=== PATIENT | male | born 1935 | race Caucasian/White ===

== ENCOUNTER 2017-02-21 04:16 | Inpatient (IN) | payer OTHER ==
[~2017-02-21] VITALS: Ht 172.7 cm; Wt 70.2 kg
[~2017-02-21 04:16] MED LIST: ASPIR 8181 M1 PO; Combivent IH; DELTASONE20 MG PO; LIPITOR40 MG PO
[2017-02-21 05:01] LABS: EOSINOPHIL (%) 1.4 % (0-5); EOSINOPHIL COUNT 0.1 K/uL (0-0.3); HEMATOCRIT 38.8 % (38.0-50.0); IMMATURE GRANULOCYTE (%) 0.2 % (0.0-0.7); LYMPHOCYTE COUNT 1.9 K/uL (1.0-2.8); MCH 31.4 PG (29.0-34.0); MCHC 33.5 G/DL (30.0-36.0); MCV 93.7 FL (86-99); MEAN PLAT.VOLUME 10.2 uM^3 (9.0-12.4); MONOCYTE (%) 8.3 % (3-12); MONOCYTE COUNT 0.8 K/uL (0-0.8); NEUTROPHIL (%) 70.3 % (45-76); PLATELET COUNT 272 K/uL (156-360); RBC DIS.WIDTH-CV 13.8 % (11.8-14.6); RBC DIS.WIDTH-SD 47.5 % (39-53); RED BLOOD COUNT 4.14 M/uL (4.00-5.50)
[2017-02-21 05:08] LABS: PTT 38.2 SEC (25-37)
[2017-02-21 05:14] LABS: CHLORIDE 111 mEq/L (99-109); POTASSIUM 4.3 mEq/L (3.7-5.4); SODIUM 141 mEq/L (136-147)
[2017-02-21 05:16] LABS: GLUCOSE 121 mg/dL (70-99)
[2017-02-21 05:17] LABS: ANION GAP 11 MEQ/L (2-14)
[2017-02-21 05:20] LABS: GFR ESTIMATE (CALCULATED) > 59 mL/min/
[2017-02-21 05:21] LABS: UREA NITROGEN (BUN) 24 mg/dL (9-23)
[2017-02-21 05:22] LABS: TROP-I INTERPRETATION POSITIVE
[2017-02-21 05:31] LABS: TROPONIN-I 1.34 ng/mL (0.0-0.30)
[2017-02-21] MEDS ORDERED: XARELTO20 MG PO (07:06)
[2017-02-21] MEDS ORDERED: ROSUVASTATIN CA20 MG PO (07:07)
[2017-02-21 07:56] VITALS: BP 120/70
[2017-02-21 08:13] LABS: HDL CHOLESTEROL 36 MG/DL (Desirable>=40); LDL CHOLESTEROL 48 mg/dL (Desirable<100); NON-HDL CHOLESTEROL 66 mg/dL (Desirable<160); TOTAL CHOLESTEROL 102 mg/dL (Desirable<200); TRIGLYCERIDES 88 MG/DL (Normal: <150)
[2017-02-21 12:36] VITALS: BP 118/62
[2017-02-21 13:00] LABS: TROP-I INTERPRETATION POSITIVE; TROPONIN-I 1.14 ng/mL (0.0-0.30)
[2017-02-21] MEDS ORDERED: UNISOM SLEEP AI25 MG PO (16:00)
[2017-02-21] MEDS ORDERED: CICLOPIROX30 GM TP (16:00)
[2017-02-21] MEDS ORDERED: ONE DAILY MULT1 EACH PO (16:01)
[2017-02-21 16:45] VITALS: BP 127/77
[2017-02-21 18:42] LABS: TROP-I INTERPRETATION POSITIVE; TROPONIN-I 0.94 ng/mL (0.0-0.30)
[2017-02-21 20:00] VITALS: BP 114/62
[2017-02-21 23:40] VITALS: BP 128/60
[2017-02-22 04:32] VITALS: BP 121/58
[2017-02-22 05:26] LABS: HEMATOCRIT 42.8 % (38.0-50.0); MCH 31.7 PG (29.0-34.0); MCHC 33.9 G/DL (30.0-36.0); MCV 93.4 FL (86-99); MEAN PLAT.VOLUME 11.6 uM^3 (9.0-12.4); PLATELET COUNT 269 K/uL (156-360); RBC DIS.WIDTH-CV 14.2 % (11.8-14.6); RBC DIS.WIDTH-SD 47.9 % (39-53); RED BLOOD COUNT 4.58 M/uL (4.00-5.50); WHITE BLOOD COUNT 12.1 K/uL (4.1-10.2)
[2017-02-22 05:59] LABS: ANION GAP 13 MEQ/L (2-14); CHLORIDE 107 MEQ/L (99-109); GFR ESTIMATE (CALCULATED) 48 mL/min/; GLUCOSE 125 mg/dL (70-99); POTASSIUM 4.6 MEQ/L (3.7-5.4); SAMPLE HEMOLYSIS CHECK 1; SAMPLE ICTERIC CHECK 0; SAMPLE LIPEMIA CHECK 0; SODIUM 141 MEQ/L (136-147); UREA NITROGEN (BUN) 26 mg/dL (9-23)
[2017-02-22 06:34] LABS: INTER. NORMALIZED RATIO 1.4; PROTHROMBIN TIME 16.3 SEC (10.2-12.9)
[2017-02-22 08:13] VITALS: BP 138/63
[2017-02-22 12:33] VITALS: BP 119/58
[2017-02-22 16:27] VITALS: BP 114/69
[2017-02-22 19:45] VITALS: BP 121/58
[2017-02-22 22:45] VITALS: BP 116/76
[2017-02-23 04:00] VITALS: BP 114/57
[2017-02-23 06:04] LABS: HEMATOCRIT 42.3 % (38.0-50.0); MCHC 32.9 G/DL (30.0-36.0); MCV 94.2 FL (86-99); MEAN PLAT.VOLUME 10.2 uM^3 (9.0-12.4); PLATELET COUNT 314 K/uL (156-360); RBC DIS.WIDTH-CV 13.8 % (11.8-14.6); RBC DIS.WIDTH-SD 47.8 % (39-53); RED BLOOD COUNT 4.49 M/uL (4.00-5.50); WHITE BLOOD COUNT 9.1 K/uL (4.1-10.2)
[2017-02-23 06:25] LABS: ANION GAP 8 MEQ/L (2-14); CHLORIDE 107 MEQ/L (99-109); POTASSIUM 4.5 MEQ/L (3.7-5.4); SAMPLE HEMOLYSIS CHECK 0; SAMPLE ICTERIC CHECK 0; SAMPLE LIPEMIA CHECK 0; SODIUM 140 MEQ/L (136-147)
[2017-02-23 06:31] LABS: GFR ESTIMATE (CALCULATED) 48 mL/min/; GLUCOSE 113 mg/dL (70-99); UREA NITROGEN (BUN) 31 mg/dL (9-23)
[2017-02-23 06:52] LABS: INTER. NORMALIZED RATIO 1.3; PROTHROMBIN TIME 15.2 SEC (10.2-12.9)
[2017-02-23 06:55] LABS: PTT 29.4 SEC (25-37)
[2017-02-23 07:30] VITALS: BP 107/59
[2017-02-23 08:33] VITALS: BP 128/60
[2017-02-23] MEDS ORDERED: LASIX40 MG PO (10:51)
[2017-02-23] MEDS ORDERED: COREG3.125 M1 PO (10:51)
[2017-02-23] MEDS ORDERED: XARELTO20 MG PO (10:51)
[2017-02-23 11:30] VITALS: BP 131/74
== END 2017-02-23 13:21 | disposition home or self-care (01) | DRG 281 ==
LOC: EME 04:16 → EDOF 05:42 → 4EAST 05:42 → ENRESERV 05:43 → 4EAST 07:19
PROVIDERS: Emergency Medicine; Hospitalist; Internal Medicine Cardiovascular Disease
DX: I21.4 Non-ST elevation (NSTEMI) myocardial infarction (principal); I48.92 Unspecified atrial flutter; I25.10 Atherosclerotic heart disease of native coronary artery without angina pectoris; Z95.1 Presence of aortocoronary bypass graft; Z95.5 Presence of coronary angioplasty implant and graft; J44.9 Chronic obstructive pulmonary disease, unspecified; E78.00 Pure hypercholesterolemia, unspecified; E78.5 Hyperlipidemia, unspecified; I48.91 Unspecified atrial fibrillation; I50.9 Heart failure, unspecified; J98.11 Atelectasis
CPT/HCPCS: 71010; 71250; 80048; 80061; 83735; 84484; 85025; 85027; 85379; 85610; 85730; 93005; 94799; 99281; 99285; J1940; J7030

== ENCOUNTER 2017-03-02 04:19 | Inpatient (IN) | payer OTHER ==
[~2017-03-02] VITALS: Ht 172.7 cm; Wt 69.5 kg
[~2017-03-02 04:19] MED LIST changes: +CICLOPIROX30 GM TP; +COREG3.125 M1 PO; +LASIX40 MG PO; +ONE DAILY MULT1 EACH PO; +ROSUVASTATIN CA20 MG PO; +UNISOM SLEEP AI25 MG PO; +XARELTO20 MG PO
[2017-03-02 05:30] LABS: INTER. NORMALIZED RATIO 2.5
[2017-03-02 05:32] LABS: PTT 39.9 SEC (25-37)
[2017-03-02 05:34] LABS: PROTHROMBIN TIME 28.7 SEC (10.2-12.9)
[2017-03-02 05:36] LABS: CHLORIDE 108 mEq/L (99-109); SODIUM 141 mEq/L (136-147)
[2017-03-02 05:37] LABS: HEMATOCRIT 42.7 % (38.0-50.0); MCH 31.6 PG (29.0-34.0); MCHC 33.3 G/DL (30.0-36.0); MCV 94.9 FL (86-99); MEAN PLAT.VOLUME 10.2 uM^3 (9.0-12.4); PLATELET COUNT 312 K/uL (156-360); RBC DIS.WIDTH-CV 14.1 % (11.8-14.6); RBC DIS.WIDTH-SD 49.1 % (39-53); WHITE BLOOD COUNT 9.8 K/uL (4.1-10.2)
[2017-03-02 05:38] LABS: GLUCOSE 110 mg/dL (70-99)
[2017-03-02 05:39] LABS: ANION GAP 11 MEQ/L (2-14)
[2017-03-02 05:42] LABS: GFR ESTIMATE (CALCULATED) 45 mL/min/
[2017-03-02 05:43] LABS: UREA NITROGEN (BUN) 25 mg/dL (9-23)
[2017-03-02 05:49] LABS: TROP-I INTERPRETATION NEGATIVE; TROPONIN-I 0.03 ng/mL (0.0-0.30)
[2017-03-02] MEDS ORDERED: XARELTO15 MG PO (09:05)
[2017-03-02] MEDS ORDERED: BENADRYL25 MG PO (09:08)
[2017-03-02 10:04] VITALS: BP 126/75
[2017-03-02 11:51] VITALS: BP 139/67
[2017-03-02 12:51] LABS: TROP-I INTERPRETATION NEGATIVE; TROPONIN-I 0.04 ng/mL (0.0-0.30)
[2017-03-02 15:32] VITALS: BP 110/57
[2017-03-02 17:10] LABS: ADD MIUA? NO; BILIRUBIN NEGATIVE; BLOOD NEGATIVE; COLOR YELLOW ((YELLOW)); GLUCOSE (STRIP) NEGATIVE; KETONES NEGATIVE; LEUKOCYTES NEGATIVE; NITRITE NEGATIVE; PROTEIN (STRIP) NEGATIVE; SPECIFIC GRAVITY 1.008 (1.000-1.030); UROBILINOGEN 0.2 MG/DL (0.2-1.0)
[2017-03-02 17:49] LABS: TROP-I INTERPRETATION NEGATIVE; TROPONIN-I 0.03 ng/mL (0.0-0.30)
[2017-03-02 20:25] VITALS: BP 112/60
[2017-03-03] VITALS (7 sets, daily range): BP systolic 104–127; BP diastolic 53–68
[2017-03-03 06:03] LABS: ANION GAP 11 MEQ/L (2-14); CHLORIDE 110 MEQ/L (99-109); GFR ESTIMATE (CALCULATED) 52 mL/min/; GLUCOSE 87 mg/dL (70-99); POTASSIUM 4.5 MEQ/L (3.7-5.4); SAMPLE HEMOLYSIS CHECK 0; SAMPLE ICTERIC CHECK 0; SAMPLE LIPEMIA CHECK 0; SODIUM 143 MEQ/L (136-147); UREA NITROGEN (BUN) 31 mg/dL (9-23)
[2017-03-04 03:30] VITALS: BP 106/55
[2017-03-04 07:16] VITALS: BP 101/65; BP 121/57
[2017-03-04 10:14] LABS: ANION GAP 9 MEQ/L (2-14); CHLORIDE 107 MEQ/L (99-109); GFR ESTIMATE (CALCULATED) 45 mL/min/; GLUCOSE 93 mg/dL (70-99); POTASSIUM 4.4 MEQ/L (3.7-5.4); SAMPLE HEMOLYSIS CHECK 0; SAMPLE ICTERIC CHECK 0; SAMPLE LIPEMIA CHECK 0; SODIUM 141 MEQ/L (136-147); UREA NITROGEN (BUN) 30 mg/dL (9-23)
[2017-03-04 11:38] VITALS: BP 115/59
[2017-03-04] MEDS ORDERED: METOPROLOL SUCC25 MG PO (15:08)
[2017-03-04] MEDS ORDERED: DIGOXIN125 MCG PO (15:08)
[2017-03-04] MEDS ORDERED: CORDARONE200 MG PO (15:09)
[2017-03-04] MEDS ORDERED: ZOLPIDEM TARTRAT5 MG PO (15:13)
== END 2017-03-04 16:24 | disposition home health service (06) | DRG 280 ==
LOC: EME 04:19 → EDOF 07:44 → 4EAST 07:44 → CANRESERV 07:50 → ENRESERV 07:50 → 4EAST 09:23
PROVIDERS: Emergency Medicine; Internal Medicine; Internal Medicine Cardiovascular Disease; Internal Medicine Nephrology
DX: I13.0 Hypertensive heart and chronic kidney disease with heart failure and stage 1 through stage 4 chronic kidney disease, or unspecified chronic kidney disease (principal); I50.43 Acute on chronic combined systolic (congestive) and diastolic (congestive) heart failure; N18.3 Chronic kidney disease, stage 3 (moderate); N17.9 Acute kidney failure, unspecified; I21.9 Acute myocardial infarction, unspecified; E78.00 Pure hypercholesterolemia, unspecified; I48.91 Unspecified atrial fibrillation; E78.5 Hyperlipidemia, unspecified; I48.92 Unspecified atrial flutter; I25.10 Atherosclerotic heart disease of native coronary artery without angina pectoris; I08.0 Rheumatic disorders of both mitral and aortic valves; I25.2 Old myocardial infarction; Z95.1 Presence of aortocoronary bypass graft; Z95.5 Presence of coronary angioplasty implant and graft; Z79.01 Long term (current) use of anticoagulants; Z79.82 Long term (current) use of aspirin
CPT/HCPCS: 71020; 76770; 80048; 80162; 81003; 83880; 84443; 84484; 85027; 85610; 85730; 93005; 99281; 99285; J1160; J1940

== ENCOUNTER 2017-03-25 12:24 | Day surgery (SDC) | payer OTHER ==
[~2017-03-25] VITALS: Ht 172.7 cm; Wt 69.0 kg
[~2017-03-25 12:24] MED LIST changes: +AMIODARONE HCL200 MG PO; +BENADRYL25 MG PO; +CORDARONE200 MG PO; +DIGOXIN125 MCG PO; +FUROSEMIDE40 MG PO; +METOPROLOL SUCC25 MG PO; +OMEPRAZOLE20 M2 PO; +UNISOM50 MG PO; +XARELTO15 MG PO; +ZOLPIDEM TARTRAT5 MG PO
== END 2017-03-25 15:03 | disposition home or self-care (01) ==
LOC: CATH 12:24
PROC: 5A2204Z Restoration of Cardiac Rhythm, Single (ICD-10-PCS; principal; 2017-03-25)
DX: I48.1 Persistent atrial fibrillation (principal); I25.10 Atherosclerotic heart disease of native coronary artery without angina pectoris; I10 Essential (primary) hypertension; E78.2 Mixed hyperlipidemia; I35.0 Nonrheumatic aortic (valve) stenosis
CPT/HCPCS: 93005; J0330

== ENCOUNTER 2017-04-08 18:00 | Emergency (ER) | payer OTHER ==
[~2017-04-08] VITALS: Ht 172.7 cm; Wt 71.9 kg
[2017-04-08 18:38] LABS: HEMATOCRIT 42.5 % (38.0-50.0); MCH 31.4 PG (29.0-34.0); MCHC 33.2 G/DL (30.0-36.0); MCV 94.7 FL (86-99); MEAN PLAT.VOLUME 10.1 uM^3 (9.0-12.4); PLATELET COUNT 277 K/uL (156-360); RED BLOOD COUNT 4.49 M/uL (4.00-5.50)
[2017-04-08 18:47] LABS: CHLORIDE 108 mEq/L (99-109); POTASSIUM 4.7 mEq/L (3.7-5.4); SODIUM 140 mEq/L (136-147)
[2017-04-08 18:48] LABS: GLUCOSE 144 mg/dL (70-99)
[2017-04-08 18:50] LABS: ANION GAP 10 MEQ/L (2-14)
[2017-04-08 18:52] LABS: GFR ESTIMATE (CALCULATED) 45 mL/min/ (58.99-99999)
[2017-04-08 18:53] LABS: UREA NITROGEN (BUN) 24 mg/dL (9-23)
[2017-04-08 19:31] LABS: CREATINE KINASE 115 IU/L (1-294)
[2017-04-08 19:51] LABS: ADD MIUA? YES; BILIRUBIN NEGATIVE; BLOOD LARGE; COLOR AMBER ((YELLOW)); GLUCOSE (STRIP) NEGATIVE; KETONES NEGATIVE; LEUKOCYTES TRACE; NITRITE NEGATIVE; PROTEIN (STRIP) 100; SPECIFIC GRAVITY 1.013 (1.000-1.030); UROBILINOGEN 0.2 MG/DL (0.2-1.0)
[2017-04-08 20:04] LABS: BACTERIA 1+ /HPF; CASTS NONE SEEN /LPF; CRYSTALS PRESENT; EPITHELIAL CELLS RARE /HPF; MUCUS RARE /LPF; RED BLOOD CELLS TNTC /HPF (0-5); UCUL ADDED? YES
[2017-04-08 20:05] LABS: AMORPHOUS URATES CRYSTALS RARE
[2017-04-08 20:13] LABS: INTER. NORMALIZED RATIO 2.3; PROTHROMBIN TIME 26.1 SEC (10.2-12.9)
[2017-04-08] MEDS ORDERED: CIPRO250 MG PO (21:07)
[2017-04-08] MEDS ORDERED: [UNRECOGNIZED DRUG - OTHER] (21:08)
[2017-04-08 21:23] VITALS: BP 111/56
== END 2017-04-08 21:24 | disposition home or self-care (01) ==
LOC: EME 18:00
PROVIDERS: Physician Assistant
DX: N39.0 Urinary tract infection, site not specified (principal); N18.9 Chronic kidney disease, unspecified; Z95.1 Presence of aortocoronary bypass graft; Z95.5 Presence of coronary angioplasty implant and graft; Z79.01 Long term (current) use of anticoagulants; Z79.82 Long term (current) use of aspirin; E78.5 Hyperlipidemia, unspecified; Z87.891 Personal history of nicotine dependence
CPT/HCPCS: 80048 91; 81003; 82550; 85027; 85610; 86850; 86900; 86901; 87086; 99281; 99284

== ENCOUNTER 2017-07-03 08:20 | Observation (INO) | payer OTHER ==
[~2017-07-03] VITALS: Ht 172.7 cm; Wt 69.7 kg
[~2017-07-03 08:20] MED LIST changes: +CIPRO250 MG PO; +[UNRECOGNIZED DRUG - OTHER]
[2017-07-03 09:23] LABS: BASOPHIL (%) 0.4 % (0-1); EOSINOPHIL (%) 2.2 % (0-5); EOSINOPHIL COUNT 0.2 K/uL (0-0.3); HEMATOCRIT 36.1 % (38.0-50.0); HEMOGLOBIN 12.2 G/DL (12.5-16.6); IMMATURE GRANULOCYTE (%) 0.5 % (0.0-0.7); LYMPHOCYTE (%) 10.5 % (15-42); MCH 30.7 PG (29.0-34.0); MCHC 33.8 G/DL (30.0-36.0); MCV 90.9 FL (86-99); MONOCYTE (%) 9.2 % (3-12); MONOCYTE COUNT 0.8 K/uL (0-0.8); NEUTROPHIL (%) 77.2 % (45-76); NEUTROPHIL COUNT 7.1 K/uL (1.8-6.4); PLATELET COUNT 273 K/uL (156-360); RBC DIS.WIDTH-CV 15.2 % (11.8-14.6); RBC DIS.WIDTH-SD 51.1 % (39-53); RED BLOOD COUNT 3.97 M/uL (4.00-5.50); WHITE BLOOD COUNT 9.2 K/uL (4.1-10.2)
[2017-07-03 09:29] LABS: INTER. NORMALIZED RATIO 2.4
[2017-07-03 09:32] LABS: PTT 39.1 SEC (25-37)
[2017-07-03 09:34] LABS: ALBUMIN 3.8 g/dL (3.2-4.8); CHLORIDE 106 mEq/L (99-109); POTASSIUM 4.3 mEq/L (3.7-5.4); SODIUM 140 mEq/L (136-147)
[2017-07-03 09:35] LABS: MAGNESIUM 2.2 mg/dL (1.3-2.7)
[2017-07-03 09:37] LABS: GLUCOSE 117 mg/dL (70-99); TOTAL PROTEIN 6.5 g/dL (6.4-8.3)
[2017-07-03 09:38] LABS: TOTAL BILIRUBIN 0.9 mg/dL (0.0-1.0)
[2017-07-03 09:40] LABS: ALKALINE PHOSPHATASE 98 IU/L (3-129); CREATININE 1.5 mg/dL (0.6-1.3); GFR ESTIMATE (CALCULATED) 48 mL/min/ (58.99-99999)
[2017-07-03 09:41] LABS: UREA NITROGEN (BUN) 24 mg/dL (9-23)
[2017-07-03 09:42] LABS: AST (GOT) 30 IU/L (2-34); DIRECT BILIRUBIN 0.5 mg/dL (0.0-0.3)
[2017-07-03 09:43] LABS: ALT (GPT) 36 IU/L (3-49)
[2017-07-03 09:44] LABS: LIPASE 10 U/L (1.0-51.0); TROP-I INTERPRETATION NEGATIVE; TROPONIN-I 0.02 ng/mL (0.0-0.30)
[2017-07-03] MEDS ORDERED: LISINOPRIL2.5 MG PO (12:10)
[2017-07-03] MEDS ORDERED: FUROSEMIDE20 MG PO (12:10)
[2017-07-03] MEDS ORDERED: OMEPRAZOLE40 M1 PO (12:10)
[2017-07-03] MEDS ORDERED: METOPROLOL SUCC25 MG PO (12:11)
[2017-07-03] MEDS ORDERED: MIRTAZAPINE30 MG PO (12:11)
[2017-07-03] MEDS ORDERED: LUNESTA1 MG PO (12:13)
[2017-07-03 12:27] LABS: HDL CHOLESTEROL 32 MG/DL (Desirable>=40); LDL CHOLESTEROL 49 mg/dL (Desirable<100); NON-HDL CHOLESTEROL 59 mg/dL (Desirable<160); TOTAL CHOLESTEROL 91 mg/dL (Desirable<200); TRIGLYCERIDES 49 MG/DL (Normal: <150)
[2017-07-03 12:35] VITALS: BP 132/63
[2017-07-03 15:36] LABS: TROP-I INTERPRETATION NEGATIVE; TROPONIN-I 0.02 ng/mL (0.0-0.30)
[2017-07-03 15:49] VITALS: BP 141/58
[2017-07-03 19:06] VITALS: BP 130/63
[2017-07-03 21:55] LABS: TROP-I INTERPRETATION NEGATIVE; TROPONIN-I 0.02 ng/mL (0.0-0.30)
[2017-07-03 23:20] VITALS: BP 103/50
[2017-07-04 05:47] LABS: HEMATOCRIT 36.8 % (38.0-50.0); HEMOGLOBIN 11.9 G/DL (12.5-16.6); MCH 29.4 PG (29.0-34.0); MCHC 32.3 G/DL (30.0-36.0); MCV 90.9 FL (86-99); PLATELET COUNT 288 K/uL (156-360); RBC DIS.WIDTH-CV 15.4 % (11.8-14.6); RBC DIS.WIDTH-SD 50.9 % (39-53); RED BLOOD COUNT 4.05 M/uL (4.00-5.50); WHITE BLOOD COUNT 8.2 K/uL (4.1-10.2)
[2017-07-04 06:17] LABS: ALBUMIN 3.3 G/DL (3.2-4.8); ALKALINE PHOSPHATASE 78 IU/L (3-129); ALT (GPT) 24 IU/L (3-49); AST (GOT) 17 IU/L (2-34); CHLORIDE 104 MEQ/L (99-109); CREATININE 1.5 MG/DL (0.6-1.3); GFR ESTIMATE (CALCULATED) 48 mL/min/ (58.99-99999); GLUCOSE 101 mg/dL (70-99); POTASSIUM 4.6 MEQ/L (3.7-5.4); SODIUM 140 MEQ/L (136-147); TOTAL BILIRUBIN 0.8 MG/DL (0.0-1.0); TOTAL PROTEIN 5.4 G/DL (6.4-8.3); UREA NITROGEN (BUN) 23 mg/dL (9-23)
[2017-07-04 07:26] VITALS: BP 138/60
[2017-07-04 11:27] VITALS: BP 113/57
[2017-07-04] MEDS ORDERED: COLACE100 MG PO (11:37)
== END 2017-07-04 13:00 | disposition home or self-care (01) ==
LOC: EME 08:20 → EDOF 11:22 → ENRESERV 11:32 → EDOF 11:37 → ENRESERV 11:43 → 5WEST 12:31 → ENPENDDIS 07-04 → 5WEST 07-04 13:00
PROVIDERS: Emergency Medicine; Student in an Organized Health Care Education/Training Program
DX: R10.13 Epigastric pain (principal); R94.31 Abnormal electrocardiogram [ECG] [EKG]; I48.92 Unspecified atrial flutter; I25.10 Atherosclerotic heart disease of native coronary artery without angina pectoris; Z95.1 Presence of aortocoronary bypass graft; Z95.5 Presence of coronary angioplasty implant and graft; I25.2 Old myocardial infarction; I42.9 Cardiomyopathy, unspecified; I12.9 Hypertensive chronic kidney disease with stage 1 through stage 4 chronic kidney disease, or unspecified chronic kidney disease; N18.3 Chronic kidney disease, stage 3 (moderate); E78.5 Hyperlipidemia, unspecified; Z87.891 Personal history of nicotine dependence; Z79.82 Long term (current) use of aspirin; Z79.01 Long term (current) use of anticoagulants
CPT/HCPCS: 71045; 80048; 80053; 80061; 80076; 83690; 83735; 84484; 85025; 85027; 85610; 85730; 87502; 93005; 99281; 99285; G0378; J7120; Q0164